=== PATIENT | male | born 1960 | race Caucasian/White ===

== ENCOUNTER 2017-02-22 20:58 | Emergency (ER) | payer OTHER ==
[~2017-02-22] VITALS: Ht 193 cm; Wt 168.2 kg
[2017-02-22] MEDS ORDERED: LISINOPRIL 20 MG TABLET ONE (22:46)
[2017-02-22] MEDS ORDERED: LISINOPRIL 10 MG TABLET PO ONE (23:00)
[2017-02-22 23:04] VITALS: BP 159/61
[2017-02-22 23:13] LABS: HEMATOCRIT 48.2 % (39.2-51.8); HEMOGLOBIN 16.3 g/dL (13.7-18.0); WHITE BLOOD COUNT 9.3 x10^3/uL (3.4-10)
[2017-02-22 23:19] LABS: BLOOD UREA NITROGEN 23 mg/dL (7-18)
[2017-02-22 23:24] LABS: IS PT STATUS REG ER OR PRE ER? YES
== END 2017-02-23 00:33 | disposition home or self-care (01) ==
LOC: ED 02-23 00:27
DX: R00.2 Palpitations (principal); I10 Essential (primary) hypertension
CPT/HCPCS: 36415; 71010; 80048; 82040; 83735; 83880; 84484; 85025; 93005; 99285